=== PATIENT | female | born 1980 | race Caucasian/White ===

== ENCOUNTER 2017-06-07 10:17 | Emergency (ER) | payer OTHER ==
[2017-06-07 10:26] VITALS: RESP 16
[2017-06-07] MEDS ORDERED: CYCLOBENZAPRINE 10 MG TAB PO ONE (10:38)
[2017-06-07] MEDS ORDERED: LIDOCAINE 4%/MENTHOL 1% PATCH TD ONE (10:38)
--- NOTE | 2017-06-07 10:44 | EDPHY ---
H & P Time Seen by Provider: 06/07/17 10:29 HPI/ROS: CHIEF COMPLAINT: "My neck is stiff " HISTORY OF PRESENT ILLNESS: 37-year-old female generally healthy complaining of of acute cervical and thoracic paraspinous muscle pain and spasm since yesterday. She subsequently placed heating pad and noted that this made the pain worse. This morning she was lifting heavy objects seem to make pain worse. No peripheral paresthesia, weakness, numbness. No facial complaints such as pain, weakness, paresthesia, paralysis. No ocular complaints, no eyelid droop. No history of major minor head and/or neck trauma or manipulation. No fever no chills. No flu-like symptoms. No sore throat. REVIEW OF SYSTEMS: A ten point review of systems was performed and is negative with the exception of the items mentioned in the HPI PAST MEDICAL/SURGICAL HISTORY: no anticoagulant use, no relevant medical/ surgical history SOCIAL HISTORY: denies alcohol use at time of incident PHYSICAL EXAM 1) GENERAL: Well-developed, well-nourished, alert and oriented. Appears to be in no acute distress. Answering questions appropriately. 2) HEAD: Normocephalic, atraumatic 3) HEENT: Pupils equal, round, reactive to light bilaterally. Negative Horners. Nasopharynx, oropharynx, clear. No deformity or angulation of nose. No septal hematoma. No rhinorrhea. No oral trauma. Ears bilaterally with normal tympanic membranes. No hemotympanum. No fluid or blood in the external auditory canal. No raccoon eyes. No Estrada sign.. 4) NECK: Tender to palpation paraspinous cervical musculature. Posterior cervical spine is nontender, no stepoff, no effusion. Full range of motion which does not elicit any midline cervical spine pain, no posterior midline tenderness, no step-off. 5) LUNGS: Clear to auscultation bilaterally, no wheezes, no rhonchi, no retractions. No obvious signs of trauma. No chest wall pain. No flaring, no grunting. Moving symmetrically. No crepitus. 6) HEART: [Regular rate and rhythm, 7) ABDOMEN: No guarding, no rebound, no focal tenderness, no peritoneal signs, no signs of trauma, no ecchymosis 8) MUSCULOSKELETAL: Moving all extremities, no focal areas of tenderness, no obvious trauma. 9) BACK: No midline vertebral tenderness, no fluctuance, no step-off, no obvious trauma, no visual or palpable abnormality. 10) SKIN: no rash 11) NEURO: Awake, alert, and oriented to person, place and time. Answers questions appropriately. There were no obvious focal neurologic abnormalities. No cerebellar dysfunction. Normal steady gait. Upper and lower extremities bilaterally with strength 5 / 5, reflexes 2+. DIFFERENTIAL DIAGNOSIS: In no particular order my differential includes but is not limited to deep space infection, cervico-cranial vessel disssection, muscle strain. Smoking Status: Never smoked Constitutional: Initial Vital Signs Temperature (C) 37.0 C 06/07/17 10:21 Heart Rate 90 06/07/17 10:21 Respiratory Rate 16 06/07/17 10:21 Blood Pressure 124/75 H 06/07/17 10:21 O2 Sat (%) 98 06/07/17 10:21 O2 Delivery Mode Room Air O2 (L/minute) 2 Allergies/Adverse Reactions: latex Allergy (Verified 06/07/17 10:20) Home Medications: Medication Instructions Recorded Hydrocodone/APAP 5/325 [[place] 1 tab PO Q6 PRN #7 tab 06/07/17 5/325 (RX)] MDM/Departure - MDM Medications Given: Discontinued Medications Cyclobenzaprine HCl (Flexeril) 10 mg PO EDNOW ONE Stop: 06/07/17 10:39 Last Admin: 06/07/17 10:46 Dose: Not Given Hydromorphone HCl (Dilaudid) 1 mg IVP EDNOW ONE Stop: 06/07/17 11:10 Last Admin: 06/07/17 11:49 Dose: 1 mg Hydromorphone HCl (Dilaudid) 0.5 mg IVP EDNOW ONE Stop: 06/07/17 12:54 Last Admin: 06/07/17 13:03 Dose: 0.5 mg Ketorolac Tromethamine (Toradol) 60 mg IM EDNOW ONE Stop: 06/07/17 11:00 Last Admin: 06/07/17 11:49 Dose: Not Given Ketorolac Tromethamine (Toradol) 15 mg IVP EDNOW ONE Stop: 06/07/17 11:10 Last Admin: 06/07/17 11:49 Dose: 15 mg Miscellaneous Information (Patch Removal) 1 ea TD DAILY21 ELISEO Stop: 12/04/17 20:59 Last Admin: 06/07/17 13:08 Dose: Not Given Miscellaneous Medication (Icy Hot Lidocaine/Menthol 4%/1% Patch) 1 patch TD EDNOW ONE Stop: 06/07/17 10:39 Last Admin: 06/07/17 10:46 Dose: Not Given Ondansetron HCl (Zofran) 4 mg IVP EDNOW ONE Stop: 06/07/17 11:10 Last Admin: 06/07/17 11:49 Dose: 4 mg ED Course/Re-evaluation: 11:07 a.m.: Patient was re-evaluated with serial examinations. I think that her symptoms are more than likely secondary to acute mild facial strain and less than likely secondary to vertebral artery dissection or cervico-cranial vessel dissection. Absence of neurologic deficits, weakness, I do not think that emergent MRI is indicated. I do not think that emergent x-ray indicated in the absence of trauma or midline pain. I had initially discussed with the patient placing a lidocaine patch, providing her oral Flexeril which were subsequently ordered however she subsequently declined stating that Flexeril did not work and she is allergic to lidocaine. She requested that I review her medical records from [facility] of July 2016 which I did via [email or web address] and which subsequently showed visit of 08/08/2016 which indicate the patient was given multiple doses of Dilaudid, was given Toradol and IV Valium. She states that this worked well and alleviated her symptoms. I discussed with the patient the [facility] program and discussed alternatives however she would like to pursue similar medications given to her at [facility]. Discussed with her potential side effects including, but not limited to nausea, apnea, somnolence. She verbalized understanding and acceptance and would like to proceed. 12:54 p.m.: Patient re-evaluated, states that her pain has significantly improved, she feels she can go home if she could have a small further dose of analgesia. This will be ordered and plan will be discharge home. Care of patient under supervision of secondary supervising physician Dr Alicea . - Depart Disposition: Home, Routine, Self-Care Clinical Impression: Cervical strain, acute Qualifiers: Encounter type: initial encounter Qualified Code(s): S16.1XXA - Strain of muscle, fascia and tendon at neck level, initial encounter Condition: Good Instructions: Cervical Strain (ED) Additional Instructions: Return to the ER immediately if you experience new or worsening neck pain, dizziness, visual disturbance, double vision, lightheadedness, facial droop, or any other symptoms that concern you. Avoid deep tissue massage and chiropractic manipulation, until symptom-free, and cleared by your regular health care provider. Prescriptions: Hydrocodone/APAP 5/325 [[place] 5/325 (RX)] 1 tab PO Q6 PRN #7 tab PRN Reason: Pain, Severe Referrals: SOFIA MUÑOZ [Primary Care Provider] - 1-2 days without fail
[2017-06-07] MEDS ORDERED: KETOROLAC 30 MG/1 ML SDV IM ONE (10:59)
[2017-06-07] MEDS ORDERED: HYDROmorphONE/DILAUDID 1 MG/ML INJ IVP ONE ×2 (11:09→12:53)
[2017-06-07] MEDS ORDERED: KETOROLAC 30 MG/1 ML SDV IVP ONE (11:09)
[2017-06-07] MEDS ORDERED: ONDANSETRON 4 MG/2 ML VIAL IVP ONE (11:09)
[2017-06-07 13:38] VITALS: BP 124/87; PULSE 83; TEMP 97.9; O2SAT 97
[2017-06-07] MEDS ORDERED: PATCH REMOVAL 1 EA PATCH TD SCH (21:00)
== END 2017-06-07 13:38 | disposition home or self-care (01) ==
DX: S16.1XXA Strain of muscle, fascia and tendon at neck level, initial encounter (principal); Z91.040 Latex allergy status; X58.XXXA Exposure to other specified factors, initial encounter
CPT/HCPCS: 96374; J1170; J1885; J2405